=== PATIENT | female | born 1945 | race Caucasian/White ===

== ENCOUNTER 2021-02-16 13:37 | Inpatient (IN) ==
[2021-02-16 15:06] LABS: Bilirubin,Urine Small (Negative); Blood,Urine Moderate (Negative); Clarity,Urine Slightly Cloudy (Clear); Color,Urine Yellow (Yellow); Glucose,Urine (UA) Normal (Normal); Ketones,Urine Trace mg/dL (Negative); Leukocyte Esterase,Urine Moderate (Negative); Nitrite,Urine Positive (Negative); PH,Urine 5.5 pH Units (5.0-8.0); Protein,Urine 30 mg/dL (Neg-Trace); Urobilinogen,Urine Normal (Normal)
[2021-02-16 15:10] LABS: Basophils % 0.3 %; Hematocrit 39.3 % (35.3-44.9); Hemoglobin 12.9 g/dL (11.5-15.4); Immature Granulocytes % 0.3 % (0-4); Lymphocytes # 0.8 K/mcL (0.6-4.6); Lymphocytes % 11.2 %; Mean Corpuscular HGB Conc 32.8 g/dL (31.6-35.5); Mean Corpuscular Hemoglobin 30.6 pg (28.0-33.3); Mean Corpuscular Volume 93.3 fL (83.0-100.0); Mean Platelet Volume 10.2 fL (9.4-12.4); Monocytes # 1.1 K/mcL (0.0-1.3); Monocytes % 14.4 %; Neutrophils # 5.5 K/mcL (1.6-8.9); Red Blood Count 4.21 M/mcL (3.82-4.97); Segmented Neutrophils % 73.8 %; White Blood Count 7.4 K/mcL (4.3-11.1)
[2021-02-16 15:22] LABS: Platelet Count 96 K/mcL (140-400)
[2021-02-16 15:24] LABS: Activated Partial Thrombo Time 30.2 Seconds (26.0-36.0)
[2021-02-16 15:31] LABS: INR 1.4; Prothrombin Time 15.6 Seconds (9.4-12.1)
[2021-02-16 15:32] LABS: Alanine Aminotransferase 20 Units/L (7-52); Albumin 3.2 g/dL (3.5-5.7); Alkaline Phosphatase 72 Units/L (34-104); Aspartate Amino Transferase 46 Units/L (13-39); BUN/Creatinine Ratio 19 (6-26); Bilirubin,Total 2.2 mg/dL (0.3-1.0); Blood Urea Nitrogen 18 mg/dL (8-23); Calcium 8.6 mg/dL (8.6-10.3); Carbon Dioxide 24 mEq/L (23-29); Chloride 104 mEq/L (98-107); Globulin 3.3 g/dL (2.4-3.5); Glucose 103 mg/dL (70-105); Magnesium 1.8 mg/dL (1.6-2.6); Osmolality,Calculated 284 (280-300); Phosphorous 2.4 mg/dL (2.7-4.5); Potassium 4.3 mEq/L (3.5-5.1); Sodium 136 mEq/L (136-145); Total Protein 6.5 g/dL (6.4-8.9); eGFR For African Americans > 60 (> 60); eGFR For Non-African Americans 58 (> 60)
[2021-02-16 15:38] LABS: Troponin I 0.15 ng/mL (< 0.04)
[2021-02-16 15:40] LABS: Bacteria,Urine Many per hpf (None-Few); Squamous Epithelial Cell,Urine Few per hpf (None-Few); WBC,Urine 50-100 per hpf (0-3)
[2021-02-16 16:03] LABS: Platelet Estimate Decreased (Normal)
[2021-02-16] MEDS ORDERED: Isovue-370 500 ML BOTTLE IVP ONE (16:34)
[2021-02-16] MEDS ORDERED: Furosemide 40 MG/4 ML VIAL IVP ONE (16:51)
[2021-02-16] MEDS ORDERED: cefTRIAXone 1,000 MG in 0.9 % Sodium Chloride Mini Bag 100 ML IVPB ONE (16:55)
[2021-02-16] MEDS ORDERED: MOM Conc 10 ML UD.LIQ PO PRN (17:53)
[2021-02-16] MEDS ORDERED: Mag Hydrox/Al Hydrox/Simeth 30 ML UDC PO PRN (17:53)
[2021-02-16] MEDS ORDERED: Naloxone 0.4 MG/ML INJ IVP PRN (17:53)
[2021-02-16] MEDS ORDERED: Ondansetron 4 MG/2 ML VIAL IVP PRN (17:53)
[2021-02-16] MEDS: Acetaminophen 325 MG TABLET PO PRN (19:43)
[2021-02-16] MEDS: Budesonide/Formoterol 80/4.5 1 PUFF INH IH SCH (21:17)
[2021-02-16] MEDS: Ipratropium/Albuterol Neb 3 ML IH PRN (21:22)
[2021-02-16 22:22] LABS: Adenovirus Not Detected (Not Detect); Bordetella Pertussis Not Detected (Not Detect); Chlamydophila pneumoniae Not Detected (Not Detect); Coronavirus 229E Not Detected (Not Detect); Coronavirus HKU1 Not Detected (Not Detect); Coronavirus NL63 Not Detected (Not Detect); Coronavirus OC43 Not Detected (Not Detect); Human Metapneumovirus Not Detected (Not Detect); Human Rhinovirus/Enterovirus Not Detected (Not Detect); Influenza A Subtype 2009 H1 Not Detected (Not Detect); Influenza B Not Detected (Not Detect); Mycoplasma pneumoniae Not Detected (Not Detect); Parainfluenza Virus 1 Not Detected (Not Detect); Parainfluenza Virus 2 Not Detected (Not Detect); Parainfluenza Virus 3 Not Detected (Not Detect); Parainfluenza Virus 4 Not Detected (Not Detect); Respiratory Syncytial Virus Not Detected (Not Detect); SARS-CoV-2 Not Detected (Not Detect)
[2021-02-17 03:32] LABS: Basophils % 0.5 %; Eosinophils # 0.1 K/mcL (0.0-0.6); Eosinophils % 0.9 %; Hematocrit 39.2 % (35.3-44.9); Hemoglobin 12.9 g/dL (11.5-15.4); Immature Granulocytes % 0.3 % (0-4); Lymphocytes # 1.2 K/mcL (0.6-4.6); Lymphocytes % 18.4 %; Mean Corpuscular HGB Conc 32.9 g/dL (31.6-35.5); Mean Corpuscular Hemoglobin 30.9 pg (28.0-33.3); Mean Platelet Volume 10.9 fL (9.4-12.4); Monocytes # 1.1 K/mcL (0.0-1.3); Monocytes % 16.4 %; Neutrophils # 4.1 K/mcL (1.6-8.9); Platelet Count 100 K/mcL (140-400); Red Blood Count 4.17 M/mcL (3.82-4.97); Red Cell Distribution Width 14.1 % (11.5-14.5); Segmented Neutrophils % 63.5 %; White Blood Count 6.5 K/mcL (4.3-11.1)
[2021-02-17 04:43] LABS: Blood Urea Nitrogen 20 mg/dL (8-23); Calcium 8.4 mg/dL (8.6-10.3); Carbon Dioxide 28 mEq/L (23-29); Chloride 101 mEq/L (98-107); Glucose 96 mg/dL (70-105); Osmolality,Calculated 288 (280-300); Potassium 3.9 mEq/L (3.5-5.1); Sodium 138 mEq/L (136-145)
[2021-02-17] MEDS: *HR* Enoxaparin 40 MG/0.4 ML SYRINGE SQ SCH (05:53)
[2021-02-17] MEDS: Acetaminophen 325 MG TABLET PO PRN (06:00)
[2021-02-17 06:53] LABS: BUN/Creatinine Ratio 20 (6-26); eGFR For African Americans > 60 (> 60); eGFR For Non-African Americans 53 (> 60)
[2021-02-17] MEDS: Aspirin 81 MG TAB.CHEW PO SCH (07:58)
[2021-02-17] MEDS: Metoprolol XL (24 HR) Succ 25 MG TAB.ER.24H PO SCH (07:58)
[2021-02-17] MEDS: cefTRIAXone 2,000 MG in 0.9 % Sodium Chloride Mini Bag 100 ML IVPB SCH (07:59)
[2021-02-17] MEDS: Cholecalciferol (D-3) 1,000 UNIT (25MCG) TABLET PO SCH (07:59)
[2021-02-17] MEDS ORDERED: MAGNESIUM SULFATE IVPB ONE (08:57)
[2021-02-17] MEDS ORDERED: SODIUM CHLORIDE IVPB ONE (08:57)
[2021-02-17] MEDS ORDERED: Furosemide 20 MG/2 ML VIAL IVP SCH (09:00)
[2021-02-17] MEDS ORDERED: 0.9 % Sodium Chloride 500 ML IVC ONE (09:41)
[2021-02-17] MEDS ORDERED: Perflutren Lipid Microsphere 1.3 ML in 0.9 % Sodium Chloride 8.7 ML IVP PRN (09:54)
[2021-02-17] MEDS: Ipratropium/Albuterol Neb 3 ML IH PRN ×3 (10:24→21:20)
[2021-02-17] MEDS: MethylPREDNISolone 40 MG/ML VIAL IVP SCH ×2 (10:55→20:07)
[2021-02-17] MEDS: Budesonide/Formoterol 80/4.5 1 PUFF INH IH SCH (21:21)
[2021-02-18] MEDS: MethylPREDNISolone 40 MG/ML VIAL IVP SCH ×3 (02:53→18:31)
[2021-02-18] MEDS: *HR* Enoxaparin 40 MG/0.4 ML SYRINGE SQ SCH (05:07)
[2021-02-18] MEDS: Cholecalciferol (D-3) 1,000 UNIT (25MCG) TABLET PO SCH (08:06)
[2021-02-18] MEDS: cefTRIAXone 2,000 MG in 0.9 % Sodium Chloride Mini Bag 100 ML IVPB SCH (08:07)
[2021-02-18] MEDS: Metoprolol XL (24 HR) Succ 25 MG TAB.ER.24H PO SCH (08:07)
[2021-02-18] MEDS: Aspirin 81 MG TAB.CHEW PO SCH (08:07)
[2021-02-18 09:30] LABS: Basophils % 0.2 %; Hematocrit 38.4 % (35.3-44.9); Hemoglobin 12.7 g/dL (11.5-15.4); Immature Granulocytes % 0.2 % (0-4); Lymphocytes # 0.5 K/mcL (0.6-4.6); Mean Corpuscular HGB Conc 33.1 g/dL (31.6-35.5); Mean Corpuscular Hemoglobin 30.3 pg (28.0-33.3); Mean Corpuscular Volume 91.6 fL (83.0-100.0); Mean Platelet Volume 11.2 fL (9.4-12.4); Monocytes # 0.2 K/mcL (0.0-1.3); Monocytes % 4.2 %; Neutrophils # 3.5 K/mcL (1.6-8.9); Platelet Count 125 K/mcL (140-400); Red Blood Count 4.19 M/mcL (3.82-4.97); Red Cell Distribution Width 13.7 % (11.5-14.5); Segmented Neutrophils % 83.4 %; White Blood Count 4.3 K/mcL (4.3-11.1)
[2021-02-18 10:23] LABS: BUN/Creatinine Ratio 28 (6-26); Blood Urea Nitrogen 22 mg/dL (8-23); Calcium 8.8 mg/dL (8.6-10.3); Carbon Dioxide 27 mEq/L (23-29); Chloride 103 mEq/L (98-107); Glucose 131 mg/dL (70-105); Osmolality,Calculated 289 (280-300); Potassium 4.9 mEq/L (3.5-5.1); Sodium 137 mEq/L (136-145); eGFR For African Americans > 60 (> 60); eGFR For Non-African Americans > 60 (> 60)
[2021-02-18] MEDS: Budesonide/Formoterol 80/4.5 1 PUFF INH IH SCH (21:30)
[2021-02-19] MEDS: MethylPREDNISolone 40 MG/ML VIAL IVP SCH ×2 (04:23→11:25)
[2021-02-19 05:59] LABS: Hematocrit 39.4 % (35.3-44.9); Hemoglobin 12.7 g/dL (11.5-15.4); Mean Corpuscular HGB Conc 32.2 g/dL (31.6-35.5); Mean Corpuscular Hemoglobin 30.1 pg (28.0-33.3); Mean Corpuscular Volume 93.4 fL (83.0-100.0); Mean Platelet Volume 10.4 fL (9.4-12.4); Platelet Count 147 K/mcL (140-400); Red Blood Count 4.22 M/mcL (3.82-4.97); Red Cell Distribution Width 13.7 % (11.5-14.5); White Blood Count 5.9 K/mcL (4.3-11.1)
[2021-02-19 06:15] LABS: BUN/Creatinine Ratio 35 (6-26); Blood Urea Nitrogen 28 mg/dL (8-23); Carbon Dioxide 28 mEq/L (23-29); Chloride 103 mEq/L (98-107); Glucose 126 mg/dL (70-105); Osmolality,Calculated 291 (280-300); Potassium 4.9 mEq/L (3.5-5.1); Sodium 137 mEq/L (136-145); eGFR For African Americans > 60 (> 60); eGFR For Non-African Americans > 60 (> 60)
[2021-02-19] MEDS: *HR* Enoxaparin 40 MG/0.4 ML SYRINGE SQ SCH (06:38)
[2021-02-19 07:16] VITALS: BP 117/58; PULSE 60; RESP 20; TEMP 98.1; O2SAT 94
[2021-02-19] MEDS: Aspirin 81 MG TAB.CHEW PO SCH (08:25)
[2021-02-19] MEDS: cefTRIAXone 2,000 MG in 0.9 % Sodium Chloride Mini Bag 100 ML IVPB SCH (08:25)
[2021-02-19] MEDS: Cholecalciferol (D-3) 1,000 UNIT (25MCG) TABLET PO SCH (08:25)
[2021-02-19] MEDS ORDERED: Metoprolol XL (24 HR) Succ 25 MG TAB.ER.24H PO SCH (09:00)
[2021-02-19] MEDS ORDERED: Furosemide 20 MG TABLET PO SCH (09:00)
== END 2021-02-19 18:08 | disposition other institution (70) | DRG 291 ==
LOC: EMEROOPIK 13:37 → INPPIK 13:37
PROVIDERS: ADMIT Family Medicine; ATTEND Family Medicine

== ENCOUNTER 2021-02-19 16:25 | Inpatient (IN) ==
[2021-02-19] MEDS: Budesonide/Formoterol 80/4.5 1 PUFF INH IH SCH (21:42)
[2021-02-20] MEDS: *HR* Enoxaparin 40 MG/0.4 ML SYRINGE SQ SCH (05:14)
[2021-02-20] MEDS ORDERED: *HR* Enoxaparin 40 MG/0.4 ML SYRINGE SQ SCH (06:00)
[2021-02-20] MEDS: Budesonide/Formoterol 80/4.5 1 PUFF INH IH SCH ×2 (07:41→21:09)
[2021-02-20] MEDS: Cefdinir 300 MG CAPSULE PO SCH ×2 (08:14→20:26)
[2021-02-20] MEDS: Cholecalciferol (D-3) 1,000 UNIT (25MCG) TABLET PO SCH (08:14)
[2021-02-20] MEDS: Metoprolol XL (24 HR) Succ 25 MG TAB.ER.24H PO SCH (08:14)
[2021-02-20] MEDS: Aspirin 81 MG TAB.CHEW PO SCH (08:16)
[2021-02-20] MEDS: MethylPREDNISolone 40 MG/ML VIAL IVP SCH ×2 (08:16)
[2021-02-20 08:31] LABS: Basophils # 0.1 K/mcL (0.0-0.2); Basophils % 0.9 %; Hematocrit 40.5 % (35.3-44.9); Hemoglobin 13.1 g/dL (11.5-15.4); Immature Granulocytes % 0.3 % (0-4); Lymphocytes # 1.3 K/mcL (0.6-4.6); Lymphocytes % 19.2 %; Mean Corpuscular HGB Conc 32.3 g/dL (31.6-35.5); Mean Corpuscular Volume 92.7 fL (83.0-100.0); Mean Platelet Volume 10.4 fL (9.4-12.4); Monocytes # 0.5 K/mcL (0.0-1.3); Monocytes % 6.7 %; Neutrophils # 4.9 K/mcL (1.6-8.9); Platelet Count 165 K/mcL (140-400); Red Blood Count 4.37 M/mcL (3.82-4.97); Red Cell Distribution Width 13.5 % (11.5-14.5); Segmented Neutrophils % 72.9 %; White Blood Count 6.7 K/mcL (4.3-11.1)
[2021-02-20 08:49] LABS: BUN/Creatinine Ratio 33 (6-26); Blood Urea Nitrogen 28 mg/dL (8-23); Calcium 9.1 mg/dL (8.6-10.3); Carbon Dioxide 28 mEq/L (23-29); Chloride 102 mEq/L (98-107); Glucose 118 mg/dL (70-105); Osmolality,Calculated 291 (280-300); Potassium 4.7 mEq/L (3.5-5.1); Sodium 137 mEq/L (136-145); eGFR For African Americans > 60 (> 60); eGFR For Non-African Americans > 60 (> 60)
[2021-02-20] MEDS ORDERED: Furosemide 20 MG TABLET PO SCH (09:00)
[2021-02-20] MEDS ORDERED: predniSONE 20 MG TABLET PO SCH (09:00)
[2021-02-20 09:16] LABS: Platelet Estimate Normal (Normal)
[2021-02-20] MEDS: Furosemide 20 MG TABLET PO SCH (17:03)
[2021-02-20] MEDS: predniSONE 20 MG TABLET PO SCH (17:03)
[2021-02-21] MEDS: *HR* Enoxaparin 40 MG/0.4 ML SYRINGE SQ SCH (05:21)
[2021-02-21] MEDS: Budesonide/Formoterol 80/4.5 1 PUFF INH IH SCH ×2 (07:31→21:27)
[2021-02-21] MEDS: Aspirin 81 MG TAB.CHEW PO SCH (09:29)
[2021-02-21] MEDS: Cefdinir 300 MG CAPSULE PO SCH ×2 (09:30→20:27)
[2021-02-21] MEDS: predniSONE 20 MG TABLET PO SCH ×2 (09:30→16:13)
[2021-02-21] MEDS: Metoprolol XL (24 HR) Succ 25 MG TAB.ER.24H PO SCH (09:30)
[2021-02-21] MEDS: Cholecalciferol (D-3) 1,000 UNIT (25MCG) TABLET PO SCH (09:30)
[2021-02-21] MEDS: Furosemide 20 MG TABLET PO SCH ×2 (09:30→16:13)
[2021-02-22] MEDS: *HR* Enoxaparin 40 MG/0.4 ML SYRINGE SQ SCH (05:15)
[2021-02-22] MEDS: Budesonide/Formoterol 80/4.5 1 PUFF INH IH SCH ×2 (08:01→21:07)
[2021-02-22] MEDS: Furosemide 20 MG TABLET PO SCH ×2 (09:27→16:47)
[2021-02-22] MEDS: Cholecalciferol (D-3) 1,000 UNIT (25MCG) TABLET PO SCH (09:27)
[2021-02-22] MEDS: Cefdinir 300 MG CAPSULE PO SCH ×2 (09:27→20:08)
[2021-02-22] MEDS: Aspirin 81 MG TAB.CHEW PO SCH (09:27)
[2021-02-22] MEDS: Metoprolol XL (24 HR) Succ 25 MG TAB.ER.24H PO SCH (09:28)
[2021-02-22] MEDS: predniSONE 20 MG TABLET PO SCH ×2 (09:28→16:46)
[2021-02-23] MEDS: *HR* Enoxaparin 40 MG/0.4 ML SYRINGE SQ SCH (05:32)
[2021-02-23] MEDS: Metoprolol XL (24 HR) Succ 25 MG TAB.ER.24H PO SCH (08:44)
[2021-02-23] MEDS: predniSONE 20 MG TABLET PO SCH ×2 (08:45→16:54)
[2021-02-23] MEDS: Cefdinir 300 MG CAPSULE PO SCH ×2 (08:45→18:44)
[2021-02-23] MEDS: Aspirin 81 MG TAB.CHEW PO SCH (08:45)
[2021-02-23] MEDS: Cholecalciferol (D-3) 1,000 UNIT (25MCG) TABLET PO SCH (08:46)
[2021-02-23] MEDS: Furosemide 20 MG TABLET PO SCH ×2 (08:46→16:54)
[2021-02-23] MEDS: Budesonide/Formoterol 80/4.5 1 PUFF INH IH SCH ×2 (10:56→21:42)
[2021-02-24] MEDS: *HR* Enoxaparin 40 MG/0.4 ML SYRINGE SQ SCH (05:15)
[2021-02-24] MEDS: Budesonide/Formoterol 80/4.5 1 PUFF INH IH SCH ×2 (09:35→21:16)
[2021-02-24] MEDS: Metoprolol XL (24 HR) Succ 25 MG TAB.ER.24H PO SCH (10:26)
[2021-02-24] MEDS: Cefdinir 300 MG CAPSULE PO SCH ×2 (10:27→20:34)
[2021-02-24] MEDS: predniSONE 20 MG TABLET PO SCH ×2 (10:28→17:15)
[2021-02-24] MEDS: Aspirin 81 MG TAB.CHEW PO SCH (10:30)
[2021-02-24] MEDS: Furosemide 20 MG TABLET PO SCH ×2 (10:31→17:15)
[2021-02-24] MEDS: Cholecalciferol (D-3) 1,000 UNIT (25MCG) TABLET PO SCH (10:31)
[2021-02-24] MEDS: Acetaminophen 325 MG TABLET PO PRN (20:34)
[2021-02-25] MEDS: *HR* Enoxaparin 40 MG/0.4 ML SYRINGE SQ SCH (06:29)
[2021-02-25] MEDS: Cholecalciferol (D-3) 1,000 UNIT (25MCG) TABLET PO SCH (08:30)
[2021-02-25] MEDS: Metoprolol XL (24 HR) Succ 25 MG TAB.ER.24H PO SCH (08:31)
[2021-02-25] MEDS: predniSONE 20 MG TABLET PO SCH ×2 (08:31→16:19)
[2021-02-25] MEDS: Furosemide 20 MG TABLET PO SCH ×2 (08:31→16:19)
[2021-02-25] MEDS: Cefdinir 300 MG CAPSULE PO SCH ×2 (08:31→20:04)
[2021-02-25] MEDS: Aspirin 81 MG TAB.CHEW PO SCH (08:32)
[2021-02-25] MEDS: Budesonide/Formoterol 80/4.5 1 PUFF INH IH SCH ×2 (09:07→21:37)
[2021-02-26] MEDS: *HR* Enoxaparin 40 MG/0.4 ML SYRINGE SQ SCH (06:39)
[2021-02-26] MEDS: predniSONE 20 MG TABLET PO SCH ×2 (08:26→16:48)
[2021-02-26] MEDS: Furosemide 20 MG TABLET PO SCH ×2 (08:26→16:48)
[2021-02-26] MEDS: Aspirin 81 MG TAB.CHEW PO SCH (08:26)
[2021-02-26] MEDS: Cefdinir 300 MG CAPSULE PO SCH ×2 (08:27→19:45)
[2021-02-26] MEDS: Metoprolol XL (24 HR) Succ 25 MG TAB.ER.24H PO SCH (08:27)
[2021-02-26] MEDS: Cholecalciferol (D-3) 1,000 UNIT (25MCG) TABLET PO SCH (08:27)
[2021-02-26] MEDS: Budesonide/Formoterol 80/4.5 1 PUFF INH IH SCH ×2 (09:50→21:38)
[2021-02-26] MEDS: Acetaminophen 325 MG TABLET PO PRN (19:44)
[2021-02-27] MEDS: *HR* Enoxaparin 40 MG/0.4 ML SYRINGE SQ SCH (06:45)
[2021-02-27] MEDS: Cholecalciferol (D-3) 1,000 UNIT (25MCG) TABLET PO SCH (08:46)
[2021-02-27] MEDS: Cefdinir 300 MG CAPSULE PO SCH (08:46)
[2021-02-27] MEDS: Metoprolol XL (24 HR) Succ 25 MG TAB.ER.24H PO SCH (08:47)
[2021-02-27] MEDS: Aspirin 81 MG TAB.CHEW PO SCH (08:47)
[2021-02-27] MEDS: Furosemide 20 MG TABLET PO SCH ×2 (08:47→17:17)
[2021-02-27] MEDS: predniSONE 20 MG TABLET PO SCH ×2 (08:47→17:17)
[2021-02-27] MEDS: Budesonide/Formoterol 80/4.5 1 PUFF INH IH SCH ×2 (10:17→21:47)
[2021-02-28] MEDS: *HR* Enoxaparin 40 MG/0.4 ML SYRINGE SQ SCH (05:57)
[2021-02-28] MEDS: Aspirin 81 MG TAB.CHEW PO SCH (07:32)
[2021-02-28] MEDS: Cholecalciferol (D-3) 1,000 UNIT (25MCG) TABLET PO SCH (07:32)
[2021-02-28] MEDS: predniSONE 20 MG TABLET PO SCH ×2 (07:32→16:17)
[2021-02-28] MEDS: Metoprolol XL (24 HR) Succ 25 MG TAB.ER.24H PO SCH (07:32)
[2021-02-28] MEDS: Furosemide 20 MG TABLET PO SCH ×2 (07:32→16:17)
[2021-02-28] MEDS: Budesonide/Formoterol 80/4.5 1 PUFF INH IH SCH ×2 (10:01→22:11)
[2021-03-01] MEDS: *HR* Enoxaparin 40 MG/0.4 ML SYRINGE SQ SCH (05:29)
[2021-03-01 05:32] LABS: Hematocrit 44.2 % (35.3-44.9); Hemoglobin 14.4 g/dL (11.5-15.4); Mean Corpuscular HGB Conc 32.6 g/dL (31.6-35.5); Mean Corpuscular Hemoglobin 29.9 pg (28.0-33.3); Mean Corpuscular Volume 91.9 fL (83.0-100.0); Mean Platelet Volume 10.3 fL (9.4-12.4); Platelet Count 154 K/mcL (140-400); Red Blood Count 4.81 M/mcL (3.82-4.97); Red Cell Distribution Width 13.9 % (11.5-14.5); White Blood Count 10.6 K/mcL (4.3-11.1)
[2021-03-01 05:56] LABS: BUN/Creatinine Ratio 29 (6-26); Blood Urea Nitrogen 27 mg/dL (8-23); Calcium 8.5 mg/dL (8.6-10.3); Carbon Dioxide 32 mEq/L (23-29); Chloride 101 mEq/L (98-107); Glucose 127 mg/dL (70-105); Osmolality,Calculated 291 (280-300); Potassium 4.3 mEq/L (3.5-5.1); Sodium 137 mEq/L (136-145); eGFR For African Americans > 60 (> 60); eGFR For Non-African Americans 59 (> 60)
[2021-03-01] MEDS: Cholecalciferol (D-3) 1,000 UNIT (25MCG) TABLET PO SCH (08:25)
[2021-03-01] MEDS: predniSONE 20 MG TABLET PO SCH ×2 (08:25→15:35)
[2021-03-01] MEDS: Aspirin 81 MG TAB.CHEW PO SCH (08:26)
[2021-03-01] MEDS: Furosemide 20 MG TABLET PO SCH ×2 (08:26→15:35)
[2021-03-01] MEDS: Metoprolol XL (24 HR) Succ 25 MG TAB.ER.24H PO SCH (08:26)
[2021-03-01] MEDS: Nystatin POWDER 30 GM BOTTLE TP SCH ×2 (10:50→19:56)
[2021-03-01] MEDS: Budesonide/Formoterol 80/4.5 1 PUFF INH IH SCH ×2 (11:27→21:55)
[2021-03-02] MEDS: *HR* Enoxaparin 40 MG/0.4 ML SYRINGE SQ SCH (06:07)
[2021-03-02] MEDS: Cholecalciferol (D-3) 1,000 UNIT (25MCG) TABLET PO SCH (08:48)
[2021-03-02] MEDS: predniSONE 20 MG TABLET PO SCH ×2 (08:49→17:01)
[2021-03-02] MEDS: Aspirin 81 MG TAB.CHEW PO SCH (08:49)
[2021-03-02] MEDS: Furosemide 20 MG TABLET PO SCH ×2 (08:49→17:01)
[2021-03-02] MEDS: Metoprolol XL (24 HR) Succ 25 MG TAB.ER.24H PO SCH (08:49)
[2021-03-02] MEDS: Budesonide/Formoterol 80/4.5 1 PUFF INH IH SCH ×2 (09:51→21:19)
[2021-03-02] MEDS: Nystatin POWDER 30 GM BOTTLE TP SCH ×2 (11:01→23:25)
[2021-03-03] MEDS: *HR* Enoxaparin 40 MG/0.4 ML SYRINGE SQ SCH (06:28)
[2021-03-03] MEDS: predniSONE 20 MG TABLET PO SCH ×2 (08:15→17:59)
[2021-03-03] MEDS: Aspirin 81 MG TAB.CHEW PO SCH (08:15)
[2021-03-03] MEDS: Cholecalciferol (D-3) 1,000 UNIT (25MCG) TABLET PO SCH (08:16)
[2021-03-03] MEDS: Furosemide 20 MG TABLET PO SCH ×2 (08:16→17:59)
[2021-03-03] MEDS: Metoprolol XL (24 HR) Succ 25 MG TAB.ER.24H PO SCH (08:16)
[2021-03-03] MEDS: Nystatin POWDER 30 GM BOTTLE TP SCH ×2 (08:52→20:09)
[2021-03-03] MEDS: Budesonide/Formoterol 80/4.5 1 PUFF INH IH SCH ×2 (09:31→21:09)
[2021-03-04] MEDS: *HR* Enoxaparin 40 MG/0.4 ML SYRINGE SQ SCH (06:02)
[2021-03-04 06:21] VITALS: BP 138/66; PULSE 82; RESP 17; TEMP 97.9; O2SAT 94
[2021-03-04] MEDS: Aspirin 81 MG TAB.CHEW PO SCH (08:26)
[2021-03-04] MEDS: Metoprolol XL (24 HR) Succ 25 MG TAB.ER.24H PO SCH (08:27)
[2021-03-04] MEDS: predniSONE 20 MG TABLET PO SCH (08:27)
[2021-03-04] MEDS: Furosemide 20 MG TABLET PO SCH (08:27)
[2021-03-04] MEDS: Cholecalciferol (D-3) 1,000 UNIT (25MCG) TABLET PO SCH (08:27)
[2021-03-04] MEDS: Nystatin POWDER 30 GM BOTTLE TP SCH (08:27)
[2021-03-04] MEDS: Budesonide/Formoterol 80/4.5 1 PUFF INH IH SCH (11:06)
== END 2021-03-04 11:30 | disposition home health service (06) | DRG 945 ==
LOC: INPPIK 18:16
PROVIDERS: ADMIT Family Medicine; ATTEND Family Medicine